=== PATIENT | male | born 1950 | race Caucasian/White ===

== ENCOUNTER 2019-08-28 11:51 | Emergency (ER) | payer MEDICARE ==
[~2019-08-28] VITALS: Ht 175.3 cm; Wt 90.7 kg
[2019-08-28] MEDS ORDERED: BUPR150ER PO (13:16)
[2019-08-28] MEDS ORDERED: DOC250 PO (13:17)
[2019-08-28] MEDS ORDERED: CYCL10 PO (13:17)
[2019-08-28] MEDS ORDERED: Prinivil10 MG PO (13:18)
[2019-08-28] MEDS ORDERED: FURO20 PO (13:18)
[2019-08-28] MEDS ORDERED: EUTHYROX50 MCG PO (13:18)
[2019-08-28] MEDS ORDERED: METO25ER PO (13:19)
[2019-08-28] MEDS ORDERED: QUET300 PO (13:20)
[2019-08-28] MEDS ORDERED: POTA8 PO (13:20)
[2019-08-28] MEDS ORDERED: WARF2.5 PO (13:21)
[2019-08-28] MEDS ORDERED: ATOR40TA PO (13:21)
[2019-08-28 13:34] LABS: Source, Urine Voided
[2019-08-28 13:36] LABS: Alanine Aminotransfer (ALT/SGP 21 U/L (12-78); Albumin, Blood 3.1 g/dL (3.4-5.0); Albumin/Globulin Ratio 0.9 (0.8-1.8); Alk Phos 115 U/L (50-136); Anion Gap 3 mmol/L (6-16); Aspartate Aminotrans (AST/SGOT 20 U/L (12-37); Bilirubin, Total 0.3 mg/dL (0.1-1.0); Blood Urea Nitrogen 21 mg/dL (8-24); Bun/Creatinine Ratio 21.5 (12.0-20.0); CO2, Blood 32 mmol/L (21-32); Calcium, Blood 8.2 mg/dL (8.5-10.1); Chloride, Blood 104 mmol/L (98-108); Creatinine, Blood 0.98 mg/dL (0.60-1.20); Globulin, Blood 3.6 g/dL (2.2-4.0); Glomerular Filtration Rate >60 (60-); Glucose, Blood 107 mg/dL (70-99); Sodium, Blood 139 mmol/L (136-145); Total Protein, Blood 6.7 g/dL (6.4-8.2)
[2019-08-28 13:47] LABS: Bilirubin, Urine Neg (Neg); Blood, Urine Neg (Neg); Glucose Qualitative, Urine Neg (Neg); Ketones, Urine Neg (Neg); Leukocyte Esterase, Urine Neg (Neg); Nitrite, Urine Neg (Neg); Protein, Urine Neg (Neg); Urobilinogen, Urine NORM (Normal)
[2019-08-28 14:08] LABS: Appearance, Urine Clear (Clear); Color, Urine Yellow (P-Yellow)
== END 2019-08-28 14:40 | disposition home or self-care (01) ==
LOC: ER 11:51
PROVIDERS: Emergency Medicine
DX: R60.0 Localized edema (principal); J44.9 Chronic obstructive pulmonary disease, unspecified; F17.200 Nicotine dependence, unspecified, uncomplicated; Z95.0 Presence of cardiac pacemaker; Z79.899 Other long term (current) drug therapy
CPT/HCPCS: 36415; 80053; 81003; 83880; 93005; 93010; 99283-25